=== PATIENT | female | born 1970 | race Caucasian/White ===

== ENCOUNTER 2023-08-10 18:26 | Emergency (ER) | payer OTHER ==
[~2023-08-10] VITALS: Ht 152.4 cm; Wt 75.0 kg
[2023-08-10] MEDS ORDERED: KETOROLAC TROMETH 60MG/2ML VIAL IM ONE (21:15)
[2023-08-10] MEDS ORDERED: IBUP-1456 PO (21:15)
[2023-08-10 22:05] VITALS: BP 142/88; TEMP 98.2
[2023-08-10 22:10] VITALS: PULSE 102; RESP 16; O2SAT 98
== END 2023-08-10 22:23 | disposition home or self-care (01) ==
LOC: ER 18:26
DX: S63.501A Unspecified sprain of right wrist, initial encounter (principal); E78.5 Hyperlipidemia, unspecified; W18.09XA Striking against other object with subsequent fall, initial encounter; Y93.89 Activity, other specified; Y92.89 Other specified places as the place of occurrence of the external cause; Y99.8 Other external cause status
CPT/HCPCS: 29125; 73110; 73130; 96372; 99284; J1885